=== PATIENT | female | born 1935 | race Caucasian/White ===

== ENCOUNTER 2022-11-26 11:23 | Outpatient (CLI) | payer MEDICARE, OTHER | END 2022-11-26 11:24 | disposition home or self-care (01) | LOC: CSHSPEC 11:23 | PROVIDERS: ATTEND Internal Medicine Nephrology | DX: N28.1 Cyst of kidney, acquired (principal); Z95.810 Presence of automatic (implantable) cardiac defibrillator; Z53.9 Procedure and treatment not carried out, unspecified reason | CPT/HCPCS: 36415; 71045; 80053; 81001; 83970; 84100; 84443; 85025 ==